=== PATIENT | male | born 1950 | race Caucasian/White ===

== ENCOUNTER 2024-10-22 11:37 | Day surgery (SDC) | payer OTHER ==
[~2024-10-22] VITALS: Ht 182.9 cm; Wt 86.6 kg
[~2024-10-22 11:37] MED LIST: BALANCED B-1001 EACH PO; Balanced Salt Epinephrine Irrigation Solution 500 mL IR SCH; CHLO25 PO; IBUP800 PO; LEVSOD88; LISI5; Lidocaine HCl/Pf 1% 5 ML VIAL XX SCH; MIRT15ST; Moxifloxacin HCL 0.5 MG/0.1 ML 0.4MLSYR RIGHTEYE SCH; NAPPHEOPSO; NAPR250; NS 500 ML IV ONE; OMEP20ER; PHENYLEPHRINE\\TROPICAMIDE\\TETRACAINE OPHTHALMIC DILATING SOLN RIGHTEYE PRN; PRAZ5; Povidone-Iodine 450 DROP/30 ML Solution ONE; Povidone-Iodine 450 DROP/30 ML Solution RIGHTEYE SCH; SODFLU1.1; TIOT18; TRAZ100; Tetracaine HCl/Pf 0.5% Opth Soln 4 ml ONE; Trazodone HCl300 MG PO
[2024-10-22] MEDS ORDERED: Midazolam HCl 1MG / ML 2ML Vial ONE (11:51)
[2024-10-22] MEDS ORDERED: FentaNYL Citrate 50 MCG/ML 2 ML Injection ONE (11:51)
[2024-10-22] MEDS ORDERED: Tetracaine HCl 0.5% Opth Soln 15 ml ONE (11:54)
[2024-10-22] MEDS ORDERED: CARBIDOPA-LEVO1 EAC9 (12:15)
[2024-10-22] MEDS ORDERED: Cymbalta20 MG (12:15)
[2024-10-22] MEDS ORDERED: LEVO-T50 MC1 (12:16)
[2024-10-22] MEDS ORDERED: ROSUVASTATIN CA10 MG (12:17)
[2024-10-22] MEDS ORDERED: TRAM50 (12:17)
[2024-10-22] MEDS ORDERED: GALANTAMINE ER24 M3 (12:18)
[2024-10-22] MEDS ORDERED: LAMOTRIGINE (12:20)
[2024-10-22] MEDS ORDERED: Tetracaine HCl 0.5% Opth Soln 15 ml RIGHTEYE ONE (12:28)
[2024-10-22] MEDS ORDERED: NS 500 ML IV ONE (12:29)
[2024-10-22 12:52] VITALS: BP 114/75
--- NOTE | 2024-10-22 13:05 | NUR ---
10/22/24 1129 Rosa Abdullahi C[employer]GIVER AT BEDSIDE
== END 2024-10-22 13:22 | disposition home or self-care (01) ==
LOC: ORSCSDS 11:37
PROVIDERS: Student in an Organized Health Care Education/Training Program
PROC: 08RJ3JZ Replacement of Right Lens with Synthetic Substitute, Percutaneous Approach (ICD-10-PCS; principal; 2024-10-22 13:00)
DX: H25.811 Combined forms of age-related cataract, right eye (principal); H35.89 Other specified retinal disorders; H35.3220 Exudative age-related macular degeneration, left eye, stage unspecified; H35.3110 Nonexudative age-related macular degeneration, right eye, stage unspecified; G30.9 Alzheimer's disease, unspecified; F02.80 Dementia in other diseases classified elsewhere, unspecified severity, without behavioral disturbance, psychotic disturbance, mood disturbance, and anxiety; G20.A1 Parkinson's disease without dyskinesia, without mention of fluctuations; I10 Essential (primary) hypertension; E78.5 Hyperlipidemia, unspecified; Z79.899 Other long term (current) drug therapy
CPT/HCPCS: J2250; J3010; J7040; V2632